=== PATIENT | male | born 1995 | race Asian ===

== ENCOUNTER 2023-06-10 19:39 | Emergency (ER) | payer OTHER ==
[2023-06-10 19:49] VITALS: BP 143/78; O2SAT 100
[2023-06-10] MEDS ORDERED: KETOROLAC 30 MG/ML VIAL IM STA (20:13)
--- NOTE | 2023-06-10 20:16 | ED Physician Documentation ---
History of Present Illness - Stated complaint Stated Complaint: LT LEG PX - Chief complaint Chief Complaint: Ext Problem - History obtained from History obtained from: Patient - Additonal information Additional information: 37-year-old man, previously healthy, presented with left lower extremity pain after playing soccer earlier today and then sitting down at work and realizing that his muscle was seizing up. Denies numbness, weakness and is ambulatory on the leg. Endorses significant pain. Review of Systems Musculoskeletal: reports: Extremity pain. denies: Back pain, Joint pain, Extremity swelling, Joint swelling PD PAST MEDICAL HISTORY - Past Medical History Past Medical History: No Cardiovascular: None Respiratory: None Neuro: None Endocrine/Autoimmune: None GI: None : None HEENT: None Psych: None Musculoskeletal: None Derm: None - Past Surgical History Past Surgical History: No - Present Medications Home Medications: Ambulatory Orders Medication Instructions Recorded Confirmed Ibuprofen [Motrin] 600 mg PO Q6H PRN #20 tab 06/10/23 - Allergies Allergies/Adverse Reactions: Allergies Allergy/AdvReac Type Severity Reaction Status Date / Time No Known Drug Allergies Allergy Verified 06/10/23 19:48 - Social History Does the pt smoke?: No Smoking Status: Never smoker Does the pt drink ETOH?: Yes Does the pt have substance abuse?: No - Immunizations Immunizations are current?: Yes - POLST Patient has POLST: No PD ED PE NORMAL - Vitals Vital signs reviewed: Yes - General General: Alert and oriented X 3, No acute distress, Well developed/nourished - HEENT HEENT: Atraumatic, PERRL, EOMI - Neck Neck: Supple, no meningeal sign - Derm Derm: Normal color, Warm and dry - Extremities Extremities: No deformity, No tenderness to palpate, Normal ROM s pain, No edema, No calf tenderness / cord, Other (nontender to palpation. discomfort L outer thigh along ileotibial band) Results - Vitals Vitals: Vital Signs - 24 hr 06/10/23 19:41 Temperature 36.8 C Heart Rate 73 Respiratory 17 Rate Blood Pressure 143/78 H O2 Saturation 100 Oxygen O2 Source Room air PD Medical Decision Making - ED course ED course: 27-year-old man presented with left lower extremity pain after twisting it while playing soccer today. Physical exam was benign, patient is ambulatory without issue and has no bony ttp. 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 This was provided and return precautions were given. Departure - Departure Disposition: 01 Home, Self Care Clinical Impression: Muscle strain Condition: Stable Instructions: ED RICE Prescriptions: Ibuprofen [Motrin] 600 mg PO Q6H PRN #20 tab PRN Reason: Pain Comments: You were seen in the emergency department for muscle strain in the leg. You should rest for 24 hours. Prescription for ibuprofen was sent to [facility] electronically. Please follow-up with your primary care provider and return to the emergency department if you have any new or worsening symptoms or other concerns. Forms: PCP List, Activity restrictions
== END 2023-06-10 20:40 | disposition home or self-care (01) ==
LOC: ED 19:39
DX: S86.912A Strain of unspecified muscle(s) and tendon(s) at lower leg level, left leg, initial encounter (principal); X58.XXXA Exposure to other specified factors, initial encounter; Y93.66 Activity, soccer
CPT/HCPCS: 96372; 99283

== ENCOUNTER 2023-10-20 16:20 | Emergency (ER) | payer OTHER ==
[2023-10-20 16:36] VITALS: BP 142/90; O2SAT 99
[2023-10-20 16:43] LABS: RAPID STREP SCREEN Negative (Negative)
--- NOTE | 2023-10-20 17:23 | ED Physician Documentation ---
PD HPI URI - Stated complaint Stated Complaint: SORE THROAT,COUGH - Chief complaint Chief Complaint: Heent - History obtained from History obtained from: Patient - Additional information Additional information: Patient is a 28-year-old male presenting for evaluation of congestion, sore throat, dry cough for the past 4 days. He recently returned from a 3-week stay in the [facility]. He reports other family members all were ill with URI symptoms. Reports having cold symptoms on and off throughout his stay in the [facility]. He has not tested for COVID. He has not sought medical care elsewhere. He is supposed to be working this evening but felt that he was not able to go to work and thus has presented to the ER. He did have loose stools 2 days ago but they have since normalized. He denies nausea or vomiting and reports adequate oral intake. No reported fevers. He has not taken any medications with acetaminophen or ibuprofen today. Review of Systems Constitutional: reports: Chills. denies: Fever Nose: reports: Congestion Throat: reports: Sore throat Cardiac: denies: Chest pain / pressure Respiratory: reports: Cough. denies: Dyspnea GI: reports: Diarrhea (Resolved). denies: Abdominal Pain, Vomiting PD PAST MEDICAL HISTORY - Past Medical History Past Medical History: No Cardiovascular: None Respiratory: None Neuro: None Endocrine/Autoimmune: None GI: None : None HEENT: None Psych: None Musculoskeletal: None Derm: None - Past Surgical History Past Surgical History: Yes General: Other - Present Medications Home Medications: Ambulatory Orders Medication Instructions Recorded Confirmed No Known Home Medications 10/20/23 10/20/23 - Allergies Allergies/Adverse Reactions: Allergies Allergy/AdvReac Type Severity Reaction Status Date / Time No Known Drug Allergies Allergy Verified 10/20/23 16:30 - Social History Does the pt smoke?: No Smoking Status: Never smoker Does the pt drink ETOH?: Yes Does the pt have substance abuse?: No - Immunizations Immunizations are current?: Yes - POLST Patient has POLST: No PD ED PE NORMAL - General General: Alert and oriented X 3, No acute distress, Well developed/nourished - HEENT HEENT: Atraumatic, Moist mucous membranes, Pharynx benign (No oral swelling, erythema or exudate) - Neck Neck: Supple, no meningeal sign, No adenopathy - Cardiac Cardiac: RRR, Strong equal pulses - Respiratory Respiratory: No respiratory distress, Clear bilaterally - Derm Derm: Warm and dry - Neuro Neuro: Normal speech Results - Vitals Vitals: Vital Signs - 24 hr 10/20/23 16:27 Temperature 36.3 C L Heart Rate 77 Respiratory 16 Rate Blood Pressure 142/90 H O2 Saturation 99 Oxygen O2 Source Room air - Labs Labs: Laboratory Tests 10/20/23 16:34 Group A Strep Rapid Negative PD Medical Decision Making - ED course Complexity details: reviewed results, re-evaluated patient, d/w patient ED course: Patient is a 28-year-old male presenting for evaluation of sore throat, nonproductive cough, congestion for 4 days. Afebrile here with stable vital signs. Strep test is negative. Cultures pending. Lung sounds are clear No signs of labored respirations. Patient symptoms are likely related to a viral illness. Specially given recent travel and other family members that he was visiting with similar symptoms. Discussed continued supportive care. 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 He is counseled on concerning symptoms to return for. Departure - Departure Disposition: 01 Home, Self Care Clinical Impression: Upper respiratory infection, Viral pharyngitis Condition: Stable Instructions: ED Pharyngitis Viral, ED Viral Syndrome Comments: Your strep test is negative. Your symptoms are likely related to a viral illness. Please continue with fluids, rest, acetaminophen or ibuprofen as needed for fever or pain. You can also try feku-[id number] saline sprays for your nose to help loosen congestion. Your respiratory panel is pending. This will check for COVID, influenza, RSV and a number of other common cold viruses. We will notify you if it is positive for COVID. Otherwise you can check the patient portal for your results. You should quarantine from others until you know your COVID result. Please continue with acetaminophen or ibuprofen as needed for fevers and body aches, plenty of fluids/hydration and rest. Return to the ER with any worsening symptoms such as difficulty breathing or vomiting. Forms: PCP List, Activity restrictions
[2023-10-20 18:20] LABS: B. PARAPERTUSSIS- RESP PCR PAN NOT DETECTED; B. PERTUSSIS- RESP PCR PANEL NOT DETECTED; C. PNEUMONIAE- RESP PCR PANEL NOT DETECTED; CORONAVIRUS 229E-RESP PCR NOT DETECTED; CORONAVIRUS HKU1-RESP PCR NOT DETECTED; CORONAVIRUS NL63-RESP PCR NOT DETECTED; CORONAVIRUS OC43-RESP PCR NOT DETECTED; HUMAN METAPNEUMOVIRUS NOT DETECTED; INFLUENZA A- RESP PCR PANEL NOT DETECTED; INFLUENZA B - RESP PCR PANEL NOT DETECTED; M. PNEUMONIAE- RESP PCR PANEL NOT DETECTED; PARAINFLUENZA VIRUS 1 NOT DETECTED; PARAINFLUENZA VIRUS 2 NOT DETECTED; PARAINFLUENZA VIRUS 3 NOT DETECTED; PARAINFLUENZA VIRUS 4 NOT DETECTED; RHINOVIRUS/ENTEROVIRUS NOT DETECTED; RSV- RESP PCR PANEL NOT DETECTED; SARS-CoV-2 -RESP PCR PANEL NOT DETECTED
== END 2023-10-20 17:30 | disposition home or self-care (01) ==
LOC: ED 16:20
DX: J06.9 Acute upper respiratory infection, unspecified (principal); J02.8 Acute pharyngitis due to other specified organisms
CPT/HCPCS: 87070; 87430; 87633; 99283

== ENCOUNTER 2024-01-10 22:02 | Emergency (ER) | payer OTHER ==
[2024-01-10 22:07] VITALS: O2SAT 100
[2024-01-10 22:29] LABS: BASOPHILS # (AUTO) 0.1 10^3/uL (0.0-0.1); BASOPHILS % (AUTO) 0.8 %; EOSINOPHILS # (AUTO) 0.4 10^3/uL (0.0-0.7); EOSINOPHILS % (AUTO) 5.2 %; HCT - HEMATOCRIT 46.6 % (42.0-52.0); HGB - HEMOGLOBIN 14.9 g/dL (14.0-18.0); LYMPHOCYTES # (AUTO) 2.4 10^3/uL (1.5-3.5); LYMPHOCYTES % (AUTO) 32.3 %; MEAN CORPUSCULAR HEMOGLOBIN 27.6 pg (27.0-31.0); MEAN CORPUSCULAR VOLUME 86.5 fL (80.0-94.0); MEAN PLATELET VOLUME 9.8 fL (7.4-11.4); MONOCYTES # (AUTO) 0.5 10^3/uL (0.0-1.0); MONOCYTES % (AUTO) 6.8 %; NEUTROPHILS % (AUTO) 54.8 %; PLT - PLATELET COUNT 217 10^3/uL (130-450); RED BLOOD COUNT 5.39 10^6/uL (4.70-6.10); RED CELL DISTRIBUTION WIDTH 11.6 % (12.0-15.0); WHITE BLOOD COUNT 7.3 x10^3/uL (4.8-10.8)
--- NOTE | 2024-01-10 22:36 | ED Physician Documentation ---
PD HPI ABD PAIN - Stated complaint Stated Complaint: ABD PX - Chief complaint Chief Complaint: Abd Pain - History obtained from History obtained from: Patient - Additional information Additional information: HPI from patient. Patient c/o generalized abdominal pain with nausea, vomiting, and diarrhea. Gradual onset at approximately 4 PM this afternoon while driving. Denies h/o similar symptoms. Denies fever, denies blood in vomitus, stool. No exacerbating nor ameliorating factors. Review of Systems Constitutional: denies: Fever, Chills, Sweats GI: reports: Abdominal Pain, Nausea, Vomiting, Diarrhea. denies: Hematemesis, Bloody / black stool PD PAST MEDICAL HISTORY - Past Medical History Past Medical History: No Cardiovascular: None Respiratory: None Neuro: None Endocrine/Autoimmune: None GI: None : None HEENT: None Psych: None Musculoskeletal: None Derm: None - Past Surgical History Past Surgical History: Yes General: Other - Present Medications Home Medications: Ambulatory Orders Medication Instructions Recorded Confirmed Ondansetron Odt [Zofran Odt] 4 mg TL Q6H PRN #14 tablet 01/10/24 - Allergies Allergies/Adverse Reactions: Allergies Allergy/AdvReac Type Severity Reaction Status Date / Time No Known Drug Allergies Allergy Verified 01/10/24 22:05 - Social History Does the pt smoke?: No Smoking Status: Never smoker Does the pt drink ETOH?: Yes Does the pt have substance abuse?: No - Immunizations Immunizations are current?: Yes - POLST Patient has POLST: No PD ED PE NORMAL - Vitals Vital signs reviewed: Yes - General General: Alert and oriented X 3, No acute distress, Well developed/nourished - HEENT HEENT: Moist mucous membranes - Cardiac Cardiac: RRR, No murmur - Respiratory Respiratory: No respiratory distress, Clear bilaterally - Abdomen Abdomen: Soft, Non distended, Other (mild diffuse TTP without rebound or guarding, mostly RUQ and LLQ with relative sparing of RLQ) - Back Back: No CVA TTP Results - Vitals Vitals: Vital Signs - 24 hr 01/10/24 01/10/24 22:05 23:07 Temperature 36.8 C Heart Rate 71 73 Respiratory 16 16 Rate Blood Pressure 150/90 H 142/87 H O2 Saturation 100 100 Oxygen O2 Source Room air - Labs Labs: Laboratory Tests 01/10/24 01/10/24 01/10/24 22:16 22:16 22:35 WBC 7.3 RBC 5.39 Hgb 14.9 Hct 46.6 MCV 86.5 MCH 27.6 MCHC 32.0 RDW 11.6 L Plt Count 217 MPV 9.8 Neut # (Auto) 4.0 Lymph # (Auto) 2.4 Lares # (Auto) 0.5 Eos # (Auto) 0.4 Baso # (Auto) 0.1 Absolute Nucleated RBC 0.00 Nucleated RBC % 0.0 Sodium 136 Potassium 3.3 L Chloride 102 Carbon Dioxide 28 Anion Gap 6.0 BUN 11 Creatinine 1.2 Estimated GFR (MDRD) 73 L Glucose 93 Calcium 9.7 Total Bilirubin 0.6 AST 22 ALT 33 Alkaline Phosphatase 49 Total Protein 7.1 Albumin 4.3 Globulin 2.8 Albumin/Globulin Ratio 1.5 Lipase 23 Urine Color YELLOW Urine Clarity CLEAR Urine pH 7.5 Ur Specific [place] 1.015 Urine Protein NEGATIVE Urine Glucose (UA) NEGATIVE Urine Ketones NEGATIVE Urine Occult Blood MODERATE H Urine Nitrite NEGATIVE Urine Bilirubin NEGATIVE Urine Urobilinogen 0.2 (NORMAL) Ur Leukocyte Esterase NEGATIVE Urine RBC 0-5 Urine WBC 0-3 Ur Squamous Epith Cells FEW Squamous Urine Bacteria None Seen Ur Microscopic Review INDICATED Urine Culture Comments NOT INDICATED PD Medical Decision Making - ED course Complexity details: reviewed results, re-evaluated patient, considered differential, d/w patient ED course: Normal CBC except for low RDW. Normal ER abdominal panel except for mild hypokalemia (3.3) and mildly decreased GFR (although normal BUN, creatinine). UA with hematuria on macroscopy but normal microscopy. Likely viral gastroenteritis. Appendicitis unlikely given mild TTP and relative sparing of RLQ, and considering normal WBC and predominant c/o n/v/d rather than abdominal pain. Results reviewed with patient. He reports feeling improved after 4mg IV zofran and he is provided take-home pack of zofran. e-prescribed zofran, as well ([facility] [place]). Return precautions are carefully reviewed with emphasis on need to return if symptoms are worsening, particularly if he has increasing abdominal pain and/or worsening RLQ abdominal pain. Departure - Departure Disposition: 01 Home, Self Care Clinical Impression: Abdominal pain Qualifiers: Abdominal location: generalized Qualified Code(s): R10.84 - Generalized abdominal pain Condition: Good Instructions: ED Abdominal Pain Excl Appendx Male Prescriptions: Ondansetron Odt [Zofran Odt] 4 mg TL Q6H PRN #14 tablet PRN Reason: Nausea / Vomiting Comments: There were no concerning findings on tonight's test. Incidental note is made of a potassium level that is just below the normal level; this is an incidental finding (not nearly low enough to cause symptoms nor immediate concern; your primary care provider can recheck this level in the outpatient setting). There was a small amount of blood in the urine sample, the cause of which is not apparent at this time but this can also be reevaluated by your primary care provider in the outpatient setting. As we discussed, one of the more likely explanations for your symptoms is viral gastroenteritis which typically resolves within a few days. Is very important that you return to the emergency department if your symptoms worsen, particularly if you develop increasing pain that is focused in the right lower quarter of your abdomen, any fever (100.4 or higher), blood in your stool or vomit. I have electronically submitted a prescription for ondansetron (antinausea medication) to the [facility] pharmacy in [place] Forms: Activity restrictions Discharge Date/Time: 01/10/24 23:08
[2024-01-10 22:42] LABS: BILIRUBIN,URINE NEGATIVE (NEGATIVE); GLUCOSE, URINE (UA) NEGATIVE (NEGATIVE); KETONES,URINE (UA) NEGATIVE (NEGATIVE); LEUKOCYTE ESTERASE, URINE NEGATIVE (NEGATIVE); NITRITE,URINE NEGATIVE (NEGATIVE); OCCULT BLOOD,URINE MODERATE (NEGATIVE); PH,URINE 7.5 PH (5.0-7.5); PROTEIN,URINE NEGATIVE (NEGATIVE); UROBILINOGEN,URINE 0.2 (NORMAL) E.U./dL (NORMAL)
[2024-01-10 22:43] LABS: CLARITY,URINE CLEAR (CLEAR)
[2024-01-10 22:45] LABS: ALBUMIN 4.3 g/dL (3.2-5.5); ALBUMIN/GLOBULIN RATIO 1.5 (1.0-2.2); BILIRUBIN,TOTAL 0.6 mg/dL (0.2-1.0); CALCIUM 9.7 mg/dL (8.5-10.3); CREATININE 1.2 mg/dL (0.6-1.3); POTASSIUM 3.3 mmol/L (3.5-4.5); TOTAL PROTEIN 7.1 g/dL (6.4-8.9)
[2024-01-10 22:58] LABS: BACTERIA,URINE None Seen /HPF (None Seen); RBC,URINE 0-5 /HPF (0-5); SQUAMOUS EPITHELIAL CELL,UR FEW Squamous (<= Few); WBC,URINE 0-3 /HPF (0-3)
[2024-01-10] MEDS: ONDANSETRON ODT 4 MG TABLET TL STA (23:04)
[2024-01-10] MEDS: ONDANSETRON ODT 4 MG Prepack 2 TL PRN (23:05)
[2024-01-10 23:13] VITALS: BP 142/87
== END 2024-01-10 23:08 | disposition home or self-care (01) ==
LOC: ED 22:02
DX: R10.84 Generalized abdominal pain (principal)
CPT/HCPCS: 36415; 80053; 81001; 83690; 85025; 99283; 99284; A9270; Q0162; 81003; 87086

== ENCOUNTER 2024-06-24 16:58 | Emergency (ER) | payer OTHER ==
--- NOTE | 2024-06-24 18:04 | ED Physician Documentation ---
PD HPI BACK PAIN - Stated complaint Stated Complaint: LOWER BACK PX - Chief complaint Chief Complaint: Back Pain - Additional information Additional information: 28-year-old male with recurrent lower back pain. 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 There is no trauma no falls or injury to his lower back most of his pain is radiating to his left lower leg with any flexion of the left hip. No incontinence of bowel or bladder weakness, no history of back surgeries, no history of IV drug use. PD PAST MEDICAL HISTORY - Past Medical History Past Medical History: No Cardiovascular: None Respiratory: None Neuro: None Endocrine/Autoimmune: None GI: None : None HEENT: None Psych: None Musculoskeletal: None Derm: None - Past Surgical History Past Surgical History: Yes General: Other - Present Medications Home Medications: Ambulatory Orders Medication Instructions Recorded Confirmed Ondansetron Odt [Zofran Odt] 4 mg TL Q6H PRN #14 tablet 01/10/24 Cyclobenzaprine [Flexeril] 10 mg PO TID PRN 6 Days #20 tablet 06/24/24 - Allergies Allergies/Adverse Reactions: Allergies Allergy/AdvReac Type Severity Reaction Status Date / Time No Known Drug Allergies Allergy Verified 06/24/24 17:04 - Social History Does the pt smoke?: No Smoking Status: Never smoker Does the pt drink ETOH?: Yes Does the pt have substance abuse?: No - Immunizations Immunizations are current?: Yes - POLST Patient has POLST: No PD ED PE NORMAL - Vitals Vital signs reviewed: Yes - General General: Alert and oriented X 3, No acute distress, Well developed/nourished - HEENT HEENT: Atraumatic, PERRL - Derm Derm: Normal color, Warm and dry, No rash - Extremities Extremities: No deformity, No tenderness to palpate, Normal ROM s pain, No edema, No calf tenderness / cord - Neuro Neuro: Alert and oriented X 3, 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 Curvature of the cervical, thoracic, and lumbar spine are within normal limits. Bony features of the shoulders and hips are of equal height bilaterally. Posture is upright, gait is smooth, steady, and within normal limits. No tenderness noted on palpation of the spinous processes. Spinous processes are midline. Cervical, thoracic, and lumbar paraspinal muscles are not tender and are without spasm. No discomfort is noted with flexion, extension, and dhal-[id number]-[id number] rotation of the cervical spine, full range of motion is noted. Full range of motion including flexion, extension, and [id number]-sm-[id number] rotation of the thoracic and lumbar spine are noted and without discomfort. Straight leg raise test is negative bilaterally. Sensation to the upper and lower extremities is normal bilaterally. No clonus is noted. Hosiery Knitter strength is normal bilaterally. Dorsi/plantar flexion is normal bilaterally. Results - Vitals Vitals: Vital Signs - 24 hr 06/24/24 06/24/24 17:04 18:13 Temperature 36.5 C 36.8 C Heart Rate 74 60 Respiratory 16 18 Rate Blood Pressure 150/88 H 131/70 H O2 Saturation 100 97 Oxygen O2 Source Room air PD Medical Decision Making - ED course ED course: This patient presents with back pain most consistent with left sided sciatica. Differential diagnoses includes lumbago versus musculoskeletal spasm / strain versus sciatica. No back pain red flags on history or physical. Presentation not consistent with malignancy (lack of history of malignancy, lack of B symptoms), fracture (no trauma, no bony tenderness to palpation), cauda equina (no bowel or urinary incontinence/retention, no saddle anesthesia, no distal weakness), AAA, viscus perforation, osteomyelitis or epidural abscess (no IVDU, vertebral tenderness), renal colic, pyelonephritis (afebrile, no CVAT, no urinary symptoms). Given the clinical picture, no indication for imaging at this time. Prescription of muscle relaxers was sent to his preferred pharmacy and a lidocaine patch was placed over his lower back and patient was told to follow-up with his primary care provider for further workup and evaluation. Departure - Departure Disposition: 01 Home, Self Care Clinical Impression: Sciatica of left side Instructions: ED Back Care Tips, ED Sciatica Prescriptions: Cyclobenzaprine [Flexeril] 10 mg PO TID PRN 6 Days #20 tablet PRN Reason: Spasms Comments: Thank you for trusting us with your care. I believe that you are likely experiencing sciatica. You can continue with Aleve and I would add in 1000 mg of Tylenol every 8 hours for additional pain relief. Have sent a prescription o f Flexeril you can take up to 3 times a day as needed for pain and discomfort but keep in mind you cannot drive or operate heavy machinery while taking this medication. Please follow-up with your primary care provider to discuss physical therapy and getting a follow-up appointment for outpatient evaluation for this ongoing lower back pain. She has been recovering. Come back to the ER if you are starting to develop any urinary or stool incontinence or fevers or chills. Discharge Date/Time: 06/24/24 18:15
[2024-06-24] MEDS: LIDOCAINE PATCH 4% TOP STA (18:12)
[2024-06-24 18:16] VITALS: BP 131/70; O2SAT 97
== END 2024-06-24 18:15 | disposition home or self-care (01) ==
LOC: ED 16:58
DX: M54.32 Sciatica, left side (principal); Z79.899 Other long term (current) drug therapy
CPT/HCPCS: 99283; A9270